=== PATIENT | female | born 1955 | race Hispanic/Latino ===

== ENCOUNTER → 2022-05-11 | Outpatient (CLI) | payer OTHER | END | disposition home or self-care (01) | LOC: SHCH 09:05 | PROVIDERS: ATTEND Internal Medicine Cardiovascular Disease | DX: G45.1 Carotid artery syndrome (hemispheric) (principal) | CPT/HCPCS: 93880 ==

== ENCOUNTER 2022-06-11 15:15 | Observation (INO) | payer OTHER ==
[~2022-06-11] VITALS: Ht 165.1 cm; Wt 78.3 kg
[2022-06-11 16:55] LABS: BASOPHILS % (AUTO) 0.2 % (0.0-5.0); EOSINOPHILS % (AUTO) 1.5 % (0.0-8.0); HEMATOCRIT 31.7 % (36-48); LYMPHOCYTES % (AUTO) 19.3 % (21.0-51.0); MEAN CORPUSCULAR HEMOGLOBIN 29.9 pg (27.0-33.0); MEAN CORPUSCULAR HGB CONC 33.4 g/dL (32.0-36.0); MEAN CORPUSCULAR VOLUME 89.5 fL (79-99); MONOCYTES % (AUTO) 8.7 % (3.0-13.0); NEUTROPHILS % (AUTO) 69.9 % (40.0-77.0); PLATELET COUNT (AUTO) 269 K/uL (130-400); RED BLOOD CELL COUNT(AUTO) 3.54 MIL/uL (4.00-5.50); WHITE BLOOD COUNT (AUTO) 8.5 K/uL (4.8-10.8)
[2022-06-11 17:23] LABS: ALBUMIN 3.4 g/dL (3.5-5.0); BILIRUBIN,DIRECT 0.4 mg/dL (0.0-0.3); CREATININE 0.8 mg/dL (0.5-1.5); TOTAL PROTEIN, SERUM 7.3 g/dL (6.0-8.3)
[2022-06-11 18:57] LABS: APPEARANCE,URINE CLEAR (CLEAR); BILIRUBIN,URINE NEGATIVE (NEGATIVE); COLOR,URINE YELLOW (YELLOW); GLUCOSE, URINE (UA) NEGATIVE (NEGATIVE); KETONES,URINE NEGATIVE (NEGATIVE); LEUKOCYTE ESTERASE ,URINE 500 Leu/uL (NEGATIVE); NITRATE,URINE 2+ (NEGATIVE); OCCULT BLOOD,URINE NEGATIVE (NEGATIVE); PH,URINE 5.5 (5.0-8.0); PROTEIN,URINE NEGATIVE (NEGATIVE); UROBILINOGEN,URINE 0.2 mg/dL (0.2-1.0)
[2022-06-11 19:11] LABS: BACTERIA,URINE RARE /HPF (None Seen); MUCUS,URINE RARE LPF (None Seen); SQUAMOUS EPITHELIAL CELL,UR RARE /HPF (0-2)
[2022-06-11] MEDS ORDERED: ONDANSETRON 4MG INJ IVP PRN (19:30)
[2022-06-11] MEDS ORDERED: MAG/ALUM/SIMETH 30 ML UDCUP PO PRN (19:30)
[2022-06-11] MEDS ORDERED: DIPHENHYDRAMINE HCL 25 MG CAPSULE PO PRN (19:30)
[2022-06-11] MEDS ORDERED: ACETAMINOPHEN 325 MG TAB PO PRN (19:30)
[2022-06-11] MEDS ORDERED: GUAIFENESIN-DM 200/20 MG 10 ML PO PRN (19:30)
[2022-06-11] MEDS ORDERED: PHARMACY COMMUNICATION MISC SCH ×2 (19:30→20:30)
[2022-06-11] MEDS ORDERED: 1/2 NS 1000ML 1,000 ML IV SCH (19:30)
[2022-06-11] MEDS ORDERED: ZOLPIDEM TARTRATE 5 MG TAB PO PRN (19:30)
[2022-06-11] MEDS ORDERED: METRONIDAZOLE 500MG/100ML BAG 100 ML ONE (19:41)
[2022-06-11] MEDS: CEFTRIAXONE 1G VIAL IVP SCH ×2 (19:42→21:06)
[2022-06-11] MEDS: FAMOTIDINE 20MG TAB PO SCH (19:43)
[2022-06-11] MEDS: METRONIDAZOLE 500MG/100ML BAG 100 ML IVPB SCH ×2 (19:43→21:06)
[2022-06-11] MEDS ORDERED: HYDROMORPHONE 0.5 MG SYG (0.5MG/0.5ML) IVP PRN (21:30)
[2022-06-11 22:55] VITALS: BP 150/85
[2022-06-11] MEDS ORDERED: AEC81 PO (23:34)
[2022-06-11] MEDS ORDERED: METO-391 PO (23:34)
[2022-06-11] MEDS ORDERED: ERGO50CA PO (23:34)
[2022-06-11] MEDS ORDERED: ROSU5TAB12 PO (23:34)
[2022-06-11] MEDS ORDERED: AMLO-257 PO (23:34)
[2022-06-11] MEDS ORDERED: APIX5TAB PO (23:34)
[2022-06-11] MEDS ORDERED: MELA10TA PO (23:34)
[2022-06-11] MEDS ORDERED: BACL10TA PO (23:34)
[2022-06-11] MEDS ORDERED: LOSA1TAB54 PO (23:34)
[2022-06-11] MEDS ORDERED: ASCO250T70 PO (23:34)
[2022-06-12 03:14] LABS: HEMATOCRIT 32.3 % (36-48); MEAN CORPUSCULAR HEMOGLOBIN 29.8 pg (27.0-33.0); MEAN CORPUSCULAR HGB CONC 32.5 g/dL (32.0-36.0); MEAN CORPUSCULAR VOLUME 91.8 fL (79-99); RED BLOOD CELL COUNT(AUTO) 3.52 MIL/uL (4.00-5.50); RED CELL DISTRIBUTION WIDTH 13.2 % (11.0-15.5); WHITE BLOOD COUNT (AUTO) 8.6 K/uL (4.8-10.8)
[2022-06-12 03:31] LABS: ALBUMIN 3.3 g/dL (3.5-5.0); BILIRUBIN,DIRECT 0.3 mg/dL (0.0-0.3); CREATININE 0.8 mg/dL (0.5-1.5); POTASSIUM 3.9 mmol/L (3.5-5.1); TOTAL PROTEIN, SERUM 7.4 g/dL (6.0-8.3)
[2022-06-12 04:28] VITALS: BP 118/45
[2022-06-12] MEDS ORDERED: BACLOFEN 10 MG TABLET PO SCH (07:30)
[2022-06-12] MEDS ORDERED: **HM**MELATONIN 10MG PO PRN (07:30)
[2022-06-12 08:00] VITALS: BP 121/52
[2022-06-12] MEDS: FAMOTIDINE 20MG TAB PO SCH (08:43)
[2022-06-12] MEDS ORDERED: LOSARTAN/HYDROCHLOROTHIAZIDE 50-12.5MG TABLET PO SCH (09:00)
[2022-06-12] MEDS ORDERED: METOPROLOL SUCCINATE 50 MG TAB.SR.24H PO SCH (09:00)
[2022-06-12] MEDS ORDERED: VIT D2 PO SCH (09:00)
[2022-06-12] MEDS ORDERED: ASCORBIC ACID 500 MG TAB PO SCH (09:00)
[2022-06-12] MEDS ORDERED: AMLODIPINE 5 MG TAB PO SCH ×2 (09:00→21:00)
[2022-06-12] MEDS ORDERED: ATORVASTATIN 10 MG TABLET PO SCH (09:00)
[2022-06-12 12:30] VITALS: BP 126/50
[2022-06-12] MEDS: METRONIDAZOLE 500MG/100ML BAG 100 ML IVPB SCH (14:37)
== END 2022-06-12 16:40 | disposition home or self-care (01) ==
LOC: EDH 15:15 → DIRECT 15:52 → 3BH 22:38
PROVIDERS: ADMIT Internal Medicine; ATTEND Internal Medicine
DX: L76.32 Postprocedural hematoma of skin and subcutaneous tissue following other procedure (principal); I10 Essential (primary) hypertension; I48.91 Unspecified atrial fibrillation; K66.1 Hemoperitoneum; Z79.899 Other long term (current) drug therapy
CPT/HCPCS: 96376; 96365; 96375; 99285; 80076 ×2; 80048 ×2; 85025; 87077; 87088; 87186; 81001; 36415 ×2; 74176; 96366; 85027; G0378 ×25; J0696; J2405; J3490 ×2